=== PATIENT | male | born 1990 | race Two or more races ===

== ENCOUNTER 2017-08-06 22:39 | Emergency (ER) | payer SELFPAY ==
[~2017-08-06] VITALS: Ht 170.2 cm; Wt 86.6 kg
[~2017-08-06 22:39] MED LIST: ETODOLAC400 MG PO; FLEXERIL10 MG PO; KEFLEX 500MG.500 MG PO; NOMEDS XX; TESSALON PERLE100 MG PO; ZOFRAN 8MG TABLE8 MG PO; ZOFRAN ODT4 MG PO
[2017-08-06 23:10] LABS: HEMOGLOBIN 15.9 g/dL (14.1-18.0)
--- NOTE | 2017-08-06 23:13 | Emergency Room Report ---
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 N Clinical Suspician of Infection? N Mental Status: 1 - Regular (Normal Baseline) Sepsis Risk:Low Sepsis Risk Have you (or family members/close friends) recently traveled outside the [place]? N If Yes, where/when: Have you had exposure to infectious disease within the past month? N TB? Other? Specify: Comment History as per nurse's notes. The patient does not speak Tunisian, child development consultant is present. Primary complaint is nausea and vomiting since handling wet tobacco. Review of previous records shows 2 visits for tobacco poisoning last year. ALLERGIES Coded Allergies: No Known Allergies (07/06/16) History Medical History General CAD? No Angina: No MD: No Hypertension? No Hyperlipidemia? No CHF? No DVT? No PE? No COPD? No Asthma? No Anemia? No GERD? No Gastric ulcers? No GI Bleed? No Hernia? No Thyroid Problems? No Hypothyroidism? No CVA? No Seizures? No Diabetes? No Insulin Dependent: No Insulin Pump: No Home FSBS? No Renal Insuffiency? No End Stage Renal Disease? No UTI? No Stones? No BPH? No GB Disease: No Nephritic Syndrome? No Asplenia? No Hepatitis? No Sickle Cell Disease? No Arthritis? No Migraines? No Cataracts? No Glaucoma? No MRSA? No HIV? No TB? No Anxiety? No Depression? No Cancer? No Site: N More? No Immunization Hx DT/Tetanus Unknown Surgical Hx Previous Surgery?N Social History Smoking Hx Smoker: Never Smoker Tobacco: No Alcohol Alcohol: Yes Review of Systems All Other Systems Reviewed and Negative Gastrointestinal nausea, vomiting Physical Exam Vital Signs Vital Signs Date Time Temp Pulse Resp B/P Pulse O2 O2 Flow FiO2 Ox Delivery Rate 08/07 0048 98.2 68 16 151/74 100 08/07 0011 98.2 68 16 151/74 100 08/06 2333 98.4 56 18 150/71 97 09/15 2243 98.7 75 20 159/90 94 General Appearance no apparent distress Eye Exam - bilateral eye normal exam, bilateral eye PERRL, bilateral eye EOMI Ear, Nose, Throat hearing grossly normal, normal ENT inspection Neck normal inspection, non-tender, supple, full range of motion Respiratory Status Yes: trachea midline, chest symmetrical, non tender chest. No: respiratory distress. Lung Sounds bilateral: normal breath sounds, lungs clear. 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 No Results/Orders Laboratory Tests 08/06/17 2300: Creatine Kinase 582 H, CK-MB (CK-2) Rel Index 1.6, CK and CKMB Interp 9.5 *H, Troponin I < 0.02 08/06/17 2300: Sodium 141, Potassium 3.9, Chloride 105, Carbon Dioxide 28, BUN 21 H, Creatinine 0.8, Estimated Creat Clear 168, Estimated GFR (MDRD) 115, Glucose 128 H, Calcium 9.2, Total Bilirubin 0.5, AST 25, ALT 35, Alkaline Phosphatase 101, Total Protein 8.1, Albumin 4.6, Globulin 3.5 H, Albumin/Globulin Ratio 1.3, WBC 10.8, RBC 5.34, Hgb 15.9, Hct 45.7, MCV 85.7, RDW 13.2, Plt Count 259, MPV 8.6, Gran % 87.6 H, Gran # 9.5 H, Total Counted 100, Lymphocytes % 9.0 L, Monocytes % 2.9, Eosinophils % 0.2, Basophils % 0.3, Neutrophils 85 H, Lymphocytes (Manual) 13, Lymphocytes # 1.0, Monocytes (Manual) 2, Monocytes # 0.3, Eosinophils # 0.0, Basophils # 0.0, Platelet Estimate NORMAL, Anisocytosis 2+, Stomatocytes 1+, PUBS MCHC 34.9, MCH 29.9 Current Medication Orders Sig/Felix Start time Last Medication Dose Route Stop Time Status Admin Promethazine HCl 1 VITOR ONCE ONE 08/07 0045 DC 08/07 PO 08/07 0046 0044 Promethazine HCl 0 .STK-MED ONE 08/07 0044 DC PO Ondansetron HCl 4 MG ONCE ONE 08/06 2300 DC 08/06 IV 08/06 2301 2302 Sodium Chloride 10 ML PRN PRN 08/06 2300 DCD IV 08/07 2251 Sodium Chloride 1,000 ML .Q1H1M 08/06 2300 DC 08/06 IV 08/07 0000 2302 Sodium Chloride 10 ML PRN PRN 08/06 2300 DCD IV 08/07 2251 Ondansetron HCl 0 .STK-MED ONE 08/06 2254 DC .ROUTE Sodium Chloride 1,000 ML .STK-MED ONE 08/06 225 DC IV Orders Procedure Date/time Status CARDIAC ENZYMES 08/06 232 Complete 12 LEAD EKG-BESSON (INITIAL) 08/06 231 Active ELECTROCARDIOGRAM REQUEST 08/06 231 Active DIFFERENTIAL-WBC 08/06 230 Complete CHEST(2 VIEWS-NOT PORTABLE) 08/06 2252 Active IV SALINE LOCK 08/06 2251 Active CBC WITH AUTO DIFF 08/06 2251 Complete CHEM 12 PROFILE 08/06 2251 Complete CM/EKG CM/EKG Comments EKG interpreted by Josh Adam MD: Rhythm: sinus Rate: 62 [place]: normal Ectopy: none Conduction: normal ST Segment Changes: none T Wave Changes: none Q Waves: none No evidence of acute ischemia or injury No prior EKGs available for comparison XRAY/CT/US XRAY/CT/US XRAY chest Comment Chest x-ray interpreted by oJsh Adam M.D. No infiltrate, pneumothorax, pleural effusion, or wide mediastinum. Progress - 12:30 AM: The patient states he feels much better. Departure Departure Disposition DC Home or Self Care(routine) Clinical Impression Primary Impression: Tobacco poisoning Qualifiers: Encounter type: initial encounter Injury intent: accidental or unintentional Qualified Code: T65.291A - Toxic effect of other tobacco and nicotine, accidental (unintentional), initial encounter Condition STABLE Additional Instructions Phenergan every 6 hours as needed for nausea and vomiting. Drink plenty of fluids. Avoid skin contact with wet tobacco. ED Critical Care Critical Care No at 0057
--- NOTE | 2017-08-06 23:13 | Emergency Room Report ---
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 N Clinical Suspician of Infection? N Mental Status: 1 - Regular (Normal Baseline) Sepsis Risk:Low Sepsis Risk Have you (or family members/close friends) recently traveled outside the [place]? N If Yes, where/when: Have you had exposure to infectious disease within the past month? N TB? Other? Specify: Comment History as per nurse's notes. The patient does not speak Cambodian, truck bracer is present. Primary complaint is nausea and vomiting since handling wet tobacco. Review of previous records shows 2 visits for tobacco poisoning last year. ALLERGIES Coded Allergies: No Known Allergies (07/06/16) History Medical History General CAD? No Angina: No [place]: No Hypertension? No Hyperlipidemia? No CHF? No DVT? No PE? No COPD? No Asthma? No Anemia? No GERD? No Gastric ulcers? No GI Bleed? No Hernia? No Thyroid Problems? No Hypothyroidism? No CVA? No Seizures? No Diabetes? No Insulin Dependent: No Insulin Pump: No Home FSBS? No Renal Insuffiency? No End Stage Renal Disease? No UTI? No Stones? No BPH? No GB Disease: No Nephritic Syndrome? No Asplenia? No Hepatitis? No Sickle Cell Disease? No Arthritis? No Migraines? No Cataracts? No Glaucoma? No MRSA? No HIV? No TB? No Anxiety? No Depression? No Cancer? No Site: N More? No Immunization Hx DT/Tetanus Unknown Surgical Hx Previous Surgery?N Social History Smoking Hx Smoker: Never Smoker Tobacco: No Alcohol Alcohol: Yes Review of Systems All Other Systems Reviewed and Negative Gastrointestinal nausea, vomiting Physical Exam Vital Signs Vital Signs Date Time Temp Pulse Resp B/P Pulse O2 O2 Flow FiO2 Ox Delivery Rate 08/07 0048 98.2 68 16 151/74 100 08/07 0011 98.2 68 16 151/74 100 08/06 2333 98.4 56 18 150/71 97 09/15 2243 98.7 75 20 159/90 94 General Appearance no apparent distress Eye Exam - bilateral eye normal exam, bilateral eye PERRL, bilateral eye EOMI Ear, Nose, Throat hearing grossly normal, normal ENT inspection Neck normal inspection, non-tender, supple, full range of motion Respiratory Status Yes: trachea midline, chest symmetrical, non tender chest. No: respiratory distress. Lung Sounds bilateral: normal breath sounds, lungs clear. 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 No Results/Orders Laboratory Tests 08/06/17 2300: Creatine Kinase 582 H, CK-MB (CK-2) Rel Index 1.6, CK and CKMB Interp 9.5 *H, Troponin I < 0.02 08/06/17 2300: Sodium 141, Potassium 3.9, Chloride 105, Carbon Dioxide 28, BUN 21 H, Creatinine 0.8, Estimated Creat Clear 168, Estimated GFR (MDRD) 115, Glucose 128 H, Calcium 9.2, Total Bilirubin 0.5, AST 25, ALT 35, Alkaline Phosphatase 101, Total Protein 8.1, Albumin 4.6, Globulin 3.5 H, Albumin/Globulin Ratio 1.3, WBC 10.8, RBC 5.34, Hgb 15.9, Hct 45.7, MCV 85.7, RDW 13.2, Plt Count 259, MPV 8.6, Gran % 87.6 H, Gran # 9.5 H, Total Counted 100, Lymphocytes % 9.0 L, Monocytes % 2.9, Eosinophils % 0.2, Basophils % 0.3, Neutrophils 85 H, Lymphocytes (Manual) 13, Lymphocytes # 1.0, Monocytes (Manual) 2, Monocytes # 0.3, Eosinophils # 0.0, Basophils # 0.0, Platelet Estimate NORMAL, Anisocytosis 2+, Stomatocytes 1+, PUBS MCHC 34.9, MCH 29.9 Current Medication Orders Sig/Felix Start time Last Medication Dose Route Stop Time Status Admin Promethazine HCl 1 VITOR ONCE ONE 08/07 0045 DC 08/07 PO 08/07 0046 0044 Promethazine HCl 0 .STK-MED ONE 08/07 0044 DC PO Ondansetron HCl 4 MG ONCE ONE 08/06 2300 DC 08/06 IV 08/06 2301 2302 Sodium Chloride 10 ML PRN PRN 08/06 2300 DCD IV 08/07 2251 Sodium Chloride 1,000 ML .Q1H1M 08/06 2300 DC 08/06 IV 08/07 0000 2302 Sodium Chloride 10 ML PRN PRN 08/06 2300 DCD IV 08/07 2251 Ondansetron HCl 0 .STK-MED ONE 08/06 2254 DC .ROUTE Sodium Chloride 1,000 ML .STK-MED ONE 08/06 225 DC IV Orders Procedure Date/time Status CARDIAC ENZYMES 08/06 232 Complete 12 LEAD EKG-BESSON (INITIAL) 08/06 231 Active ELECTROCARDIOGRAM REQUEST 08/06 231 Active DIFFERENTIAL-WBC 08/06 230 Complete CHEST(2 VIEWS-NOT PORTABLE) 08/06 2252 Active IV SALINE LOCK 08/06 2251 Active CBC WITH AUTO DIFF 08/06 2251 Complete CHEM 12 PROFILE 08/06 2251 Complete CM/EKG CM/EKG Comments EKG interpreted by Josh Adam MD: Rhythm: sinus Rate: 62 [place]: normal Ectopy: none Conduction: normal ST Segment Changes: none T Wave Changes: none Q Waves: none No evidence of acute ischemia or injury No prior EKGs available for comparison XRAY/CT/US XRAY/CT/US XRAY chest Comment Chest x-ray interpreted by Josh Adam M.D. No infiltrate, pneumothorax, pleural effusion, or wide mediastinum. Progress - 12:30 AM: The patient states he feels much better. Departure Departure Disposition DC Home or Self Care(routine) Clinical Impression Primary Impression: Tobacco poisoning Qualifiers: Encounter type: initial encounter Injury intent: accidental or unintentional Qualified Code: T65.291A - Toxic effect of other tobacco and nicotine, accidental (unintentional), initial encounter Condition STABLE Additional Instructions Phenergan every 6 hours as needed for nausea and vomiting. Drink plenty of fluids. Avoid skin contact with wet tobacco. ED Critical Care Critical Care No at 0054
[2017-08-07 00:35] LABS: NEUTROPHILS 85 % (42-76); STOMATOCYTE 1+
[2017-08-07 00:48] VITALS: BP 151/74
--- NOTE | 2017-08-07 08:01 | RADIOLOGY REPORT PS360 ---
CHEST(2 VIEWS-NOT PORTABLE) INDICATION: Chest pain PA and lateral chest 07/06/2016 COMPARISON: FINDINGS: The lung braden are well expanded and appear clear of infiltrate. The cardiomediastinal silhouette and vascularity are normal. The costophrenic angles are clear. The bony thorax is normal. IMPRESSION: Normal chest.
== END 2017-08-07 00:49 | disposition home or self-care (01) ==
LOC: ER 22:39
PROVIDERS: Emergency Medicine
DX: T65.291A Toxic effect of other tobacco and nicotine, accidental (unintentional), initial encounter (principal); Y92.73 Farm field as the place of occurrence of the external cause; Y93.H9 Activity, other involving exterior property and land maintenance, building and construction
CPT/HCPCS: J2405

== ENCOUNTER 2017-08-15 21:22 | Emergency (ER) | payer SELFPAY ==
[~2017-08-15] VITALS: Ht 170.2 cm; Wt 86.6 kg
--- NOTE | 2017-08-15 22:58 | Emergency Room Report ---
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 N Clinical Suspician of Infection? N Mental Status: 1 - Regular (Normal Baseline) Sepsis Risk:Low Sepsis Risk Have you (or family members/close friends) recently traveled outside the [place]? N If Yes, where/when: Have you had exposure to infectious disease within the past month? N TB? Other? 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 ALLERGIES Coded Allergies: No Known Allergies (07/06/16) History Medical History General CAD? No Angina: No [place]: No Hypertension? No Hyperlipidemia? No CHF? No DVT? No PE? No COPD? No Asthma? No Anemia? No GERD? No Gastric ulcers? No GI Bleed? No Hernia? No Thyroid Problems? No Hypothyroidism? No CVA? No Seizures? No Diabetes? No Insulin Dependent: No Insulin Pump: No Home FSBS? No Renal Insuffiency? No End Stage Renal Disease? No UTI? No Stones? No BPH? No GB Disease: No Nephritic Syndrome? No Asplenia? No Hepatitis? No Sickle Cell Disease? No Arthritis? No Migraines? No Cataracts? No Glaucoma? No MRSA? No HIV? No TB? No Anxiety? No Depression? No Cancer? No Site: N More? Yes Additional hx: NOSE BLEEDS Immunization Hx Ped.Immunizations UTD Yes DT/Tetanus Unknown Surgical Hx Previous Surgery?N Social History Smoking Hx Smoker: Never Smoker Tobacco: No Alcohol Alcohol: Yes Review of Systems All Other Systems Reviewed and Negative Gastrointestinal see HPI, denies diarrhea, nausea, vomiting Physical Exam Vital Signs Vital Signs Date Time Temp Pulse Resp B/P Pulse O2 O2 Flow FiO2 Ox Delivery Rate 08/16 0136 98.3 68 18 140/63 98 08/16 0125 68 18 140/63 98 08/16 0037 61 18 145/76 98 08/15 2320 65 18 140/86 97 08/15 2152 98.3 69 18 117/80 99 General Appearance normal appearance, WD/WN, moderate distress Respiratory Status Yes: trachea midline, chest symmetrical, non tender chest. No: respiratory distress. Lung Sounds bilateral: normal breath sounds, lungs clear. 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 No Comment Upon reexamination patient appears medically improved, medically stable. Advised patient and his japanese interpreter of results obtained, consistent with tobacco poisoning, need of rest for the next 48 hours, increase fluid intake, as well as avoiding similar exposure in the future. Results/Orders Laboratory Tests 08/15/172319: Sodium 138, Potassium 4.2, Chloride 104, Carbon Dioxide 26, BUN 16, Creatinine 1.0, Estimated Creat Clear 135, Estimated GFR (MDRD) 89, Glucose 117 H, Calcium 9.2, Total Bilirubin 0.7, AST 28, ALT 29, Alkaline Phosphatase 102, Total Protein 7.7, Albumin 4.2, Globulin 3.5 H, Albumin/Globulin Ratio 1.2, WBC 9.9, RBC 5.08, Hgb 15.2, Hct 44.6, MCV 87.8, RDW 13.1, Plt Count 243, MPV 9.1, Gran % 82.6 H, Gran # 8.2 H, Lymphocytes % 12.0, Monocytes % 3.8, Eosinophils % 1.0, Basophils % 0.5, Lymphocytes # 1.2, Monocytes # 0.4, Eosinophils # 0.1, Basophils # 0.1, PUBS MCHC 34.1, MCH 29.9 Current Medication Orders Sig/Felix Start time Last Medication Dose Route Stop Time Status Admin Promethazine HCl 0 .STK-MED ONE 08/15 2349 DC .ROUTE Sodium Chloride 1,000 ML .STK-MED ONE 08/15 2349 DC IV Sodium Chloride 25 ML .STK-MED ONE 08/158 DC IV Promethazine HCl 12.5 MG ONCE ONE 08/15 2300 DC 08/15 IV 08/15 2301 2352 Sodium Chloride 10 ML PRN PRN 08/15 2300 AC IV 08/16 2255 Sodium Chloride 1,000 ML .Q1H1M 08/15 2300 DC 08/15 IV 08/16 0000 2352 Sodium Chloride 10 ML PRN PRN 08/15 2300 AC IV 08/16 2255 Sodium Chloride 25 ML ONCE ONE 08/15 2300 DC 08/15 IV 08/15 2314 2353 Orders Procedure Date/time Status IV SALINE LOCK 08/15 2255 Active CBC WITH AUTO DIFF 08/15 2255 Complete CHEM 12 PROFILE 08/15 2255 Complete Departure Departure Time of Disposition 0104 Disposition DC Home or Self Care(routine) Clinical Impression Primary Impression: Tobacco poisoning Condition STABLE Patient Instructions DI for Adverse Drug Reaction -- Other, DI for Nausea -- Adult Additional Instructions Please avoid working in the tobacco field for the next 2-3 days, drink plenty of fluids, with excessive heat/sun exposure. Discharge Counseling Counseled pt/family regarding diagnosis, test results, medications/RX, home care, follow up needs Comment Please avoid working in the tobacco field for the next 2-3 days, drink plenty of fluids, with excessive heat/sun exposure. Prescriptions Current Visit Scripts PROMETHAZINE HCL (Phenergan 25MG Tab (Geq)) 25 MG PO Q6HP PRN N/V #25 TAB ED Critical Care Critical Care No at 0812
--- NOTE | 2017-08-15 22:58 | Emergency Room Report ---
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 N Clinical Suspician of Infection? N Mental Status: 1 - Regular (Normal Baseline) Sepsis Risk:Low Sepsis Risk Have you (or family members/close friends) recently traveled outside the [place]? N If Yes, where/when: Have you had exposure to infectious disease within the past month? N TB? Other? 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 ALLERGIES Coded Allergies: No Known Allergies (07/06/16) History Medical History General CAD? No Angina: No [place]: No Hypertension? No Hyperlipidemia? No CHF? No DVT? No PE? No COPD? No Asthma? No Anemia? No GERD? No Gastric ulcers? No GI Bleed? No Hernia? No Thyroid Problems? No Hypothyroidism? No CVA? No Seizures? No Diabetes? No Insulin Dependent: No Insulin Pump: No Home FSBS? No Renal Insuffiency? No End Stage Renal Disease? No UTI? No Stones? No BPH? No GB Disease: No Nephritic Syndrome? No Asplenia? No Hepatitis? No Sickle Cell Disease? No Arthritis? No Migraines? No Cataracts? No Glaucoma? No MRSA? No HIV? No TB? No Anxiety? No Depression? No Cancer? No Site: N More? Yes Additional hx: NOSE BLEEDS Immunization Hx Ped.Immunizations UTD Yes DT/Tetanus Unknown Surgical Hx Previous Surgery?N Social History Smoking Hx Smoker: Never Smoker Tobacco: No Alcohol Alcohol: Yes Review of Systems All Other Systems Reviewed and Negative Gastrointestinal see HPI, denies diarrhea, nausea, vomiting Physical Exam Vital Signs Vital Signs Date Time Temp Pulse Resp B/P Pulse O2 O2 Flow FiO2 Ox Delivery Rate 08/16 0136 98.3 68 18 140/63 98 08/16 0125 68 18 140/63 98 08/16 0037 61 18 145/76 98 08/15 2320 65 18 140/86 97 08/15 2152 98.3 69 18 117/80 99 General Appearance normal appearance, WD/WN, moderate distress Respiratory Status Yes: trachea midline, chest symmetrical, non tender chest. No: respiratory distress. Lung Sounds bilateral: normal breath sounds, lungs clear. 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 No Comment Upon reexamination patient appears medically improved, medically stable. Advised patient and his microbiology coordinator of results obtained, consistent with tobacco poisoning, need of rest for the next 48 hours, increase fluid intake, as well as avoiding similar exposure in the future. Results/Orders Laboratory Tests 08/15/172319: Sodium 138, Potassium 4.2, Chloride 104, Carbon Dioxide 26, BUN 16, Creatinine 1.0, Estimated Creat Clear 135, Estimated GFR (MDRD) 89, Glucose 117 H, Calcium 9.2, Total Bilirubin 0.7, AST 28, ALT 29, Alkaline Phosphatase 102, Total Protein 7.7, Albumin 4.2, Globulin 3.5 H, Albumin/Globulin Ratio 1.2, WBC 9.9, RBC 5.08, Hgb 15.2, Hct 44.6, MCV 87.8, RDW 13.1, Plt Count 243, MPV 9.1, Gran % 82.6 H, Gran # 8.2 H, Lymphocytes % 12.0, Monocytes % 3.8, Eosinophils % 1.0, Basophils % 0.5, Lymphocytes # 1.2, Monocytes # 0.4, Eosinophils # 0.1, Basophils # 0.1, PUBS MCHC 34.1, MCH 29.9 Current Medication Orders Sig/Felix Start time Last Medication Dose Route Stop Time Status Admin Promethazine HCl 0 .STK-MED ONE 08/15 2349 DC .ROUTE Sodium Chloride 1,000 ML .STK-MED ONE 08/15 2349 DC IV Sodium Chloride 25 ML .STK-MED ONE 08/158 DC IV Promethazine HCl 12.5 MG ONCE ONE 08/15 2300 DC 08/15 IV 08/15 2301 2352 Sodium Chloride 10 ML PRN PRN 08/15 2300 AC IV 08/16 2255 Sodium Chloride 1,000 ML .Q1H1M 08/15 2300 DC 08/15 IV 08/16 0000 2352 Sodium Chloride 10 ML PRN PRN 08/15 2300 AC IV 08/16 2255 Sodium Chloride 25 ML ONCE ONE 08/15 2300 DC 08/15 IV 08/15 2314 2353 Orders Procedure Date/time Status IV SALINE LOCK 08/15 2255 Active CBC WITH AUTO DIFF 08/15 2255 Complete CHEM 12 PROFILE 08/15 2255 Complete Departure Departure Time of Disposition 0104 Disposition DC Home or Self Care(routine) Clinical Impression Primary Impression: Tobacco poisoning Condition STABLE Patient Instructions DI for Adverse Drug Reaction -- Other, DI for Nausea -- Adult Additional Instructions Please avoid working in the tobacco field for the next 2-3 days, drink plenty of fluids, with excessive heat/sun exposure. Discharge Counseling Counseled pt/family regarding diagnosis, test results, medications/RX, home care, follow up needs Comment Please avoid working in the tobacco field for the next 2-3 days, drink plenty of fluids, with excessive heat/sun exposure. Prescriptions Current Visit Scripts PROMETHAZINE HCL (Phenergan 25MG Tab (Geq)) 25 MG PO Q6HP PRN N/V #25 TAB ED Critical Care [place] Care No [place] 0812
[2017-08-15 23:34] LABS: HEMOGLOBIN 15.2 g/dL (14.1-18.0); LYMPH # 1.2 K/mm3 (0.7-4.5)
[2017-08-16] MEDS ORDERED: PHENERGAN25 M3 PO (01:07)
[2017-08-16 01:36] VITALS: BP 140/63
== END 2017-08-16 01:36 | disposition home or self-care (01) ==
LOC: ER 21:22
PROVIDERS: Emergency Medicine
DX: T65.294A Toxic effect of other tobacco and nicotine, undetermined, initial encounter (principal)